=== PATIENT | male | born 1960 | race Caucasian/White ===

== ENCOUNTER 2023-10-18 16:07 | Emergency (ER) | payer OTHER ==
[~2023-10-18] VITALS: Ht 170.2 cm; Wt 81.0 kg
[2023-10-18 16:17] VITALS: BP 118/77; PULSE 100; RESP 18; TEMP 98.2; O2SAT 100
[2023-10-18] MEDS ORDERED: FLUT9.9S BOTHNSTRLS (18:53)
[2023-10-18] MEDS ORDERED: LORA10CA MT (18:53)
== END 2023-10-18 19:37 | disposition home or self-care (01) ==
LOC: ER 16:07
DX: H11.31 Conjunctival hemorrhage, right eye (principal); E11.9 Type 2 diabetes mellitus without complications; E78.00 Pure hypercholesterolemia, unspecified; I10 Essential (primary) hypertension; J30.9 Allergic rhinitis, unspecified; E11.319 Type 2 diabetes mellitus with unspecified diabetic retinopathy without macular edema; Z98.890 Other specified postprocedural states
CPT/HCPCS: 99281

== ENCOUNTER 2024-06-21 01:57 | Emergency (ER) | payer MEDICAID, OTHER ==
[~2024-06-21] VITALS: Ht 167.6 cm; Wt 77.0 kg
[~2024-06-21 01:57] MED LIST: FLUT9.9S BOTHNSTRLS; LORA10CA MT
[2024-06-21 02:28] VITALS: TEMP 36.8; O2SAT 99
[2024-06-21] MEDS ORDERED: OXYMETAZOLINE HCL NASAL SPRAY 15ML BOTHNSTRLS SCH (02:45)
[2024-06-21 04:35] LABS: CHLORIDE 98 mEq/L (98-107); POTASSIUM 4.8 mEq/L (3.5-5.1); SODIUM 135 mEq/L (136-145)
[2024-06-21 04:36] LABS: CARBON DIOXIDE 29 mEq/L (21-32)
[2024-06-21 04:37] LABS: CALCIUM 10.1 mg/dL (8.7-10.4)
[2024-06-21 04:41] LABS: CREATININE 0.9 mg/dL (0.6-1.3); GLUCOSE 188 mg/dL (70-105); UREA NITROGEN BLOOD 12 mg/dL (9-23)
[2024-06-21] MEDS: KETOROLAC 15MG/ML VIAL IM ONE (06:06)
[2024-06-21] MEDS: TRANEXAMIC ACID 1,000MG/10ML IV ONE (06:08)
[2024-06-21 07:18] VITALS: BP 148/72; PULSE 101; RESP 18; O2SAT 96
[2024-06-21 09:11] LABS: BASOPHILS % 0.5 % (0.0-2.0); EOSINOPHILS % 0.2 % (0.0-5.0); HEMATOCRIT. 45.5 % (42.0-52.0); HEMOGLOBIN. 15.7 g/dL (14.0-18.0); LYMPHOCYTES % 7.8 % (20.0-50.0); MEAN CORPUSCULAR HEMOGLOBIN 30.8 pg (28.0-32.0); MEAN CORPUSCULAR HGB CONC 34.6 g/dL (31.0-37.0); MEAN CORPUSCULAR VOLUME 89.1 fL (80.0-94.0); MEAN PLATELET VOLUME 8.5 fl (7.4-10.4); MONOCYTES % 6.5 % (2.0-8.0); PLATELET 208 x1000/uL (130-400); RED BLOOD CELL COUNT 5.11 mill/uL (4.7-6.1); RED CELL DISTRIBUTION WIDTH 14.1 % (11.6-14.6); WHITE BLOOD COUNT 14.7 x1000/uL (4.5-11.0)
== END 2024-06-21 07:31 | disposition home or self-care (01) ==
LOC: ER 02:07
DX: R04.0 Epistaxis (principal); E78.00 Pure hypercholesterolemia, unspecified; E11.9 Type 2 diabetes mellitus without complications; I10 Essential (primary) hypertension; Z98.890 Other specified postprocedural states
CPT/HCPCS: 99284; 96374; 80048; 85025; 36415; 96372; J1885

== ENCOUNTER 2025-02-25 11:21 | Emergency (ER) | payer MEDICAID, OTHER ==
[~2025-02-25] VITALS: Ht 167.6 cm; Wt 74.0 kg
[2025-02-25 11:36] VITALS: TEMP 36.7; O2SAT 100
[2025-02-25 13:53] LABS: CLARITY URINE CLEAR (CLEAR); COLOR URINE YELLOW (YELLOW); GLUCOSE URINE NEGATIVE (NEGATIVE); KETONES URINE NEGATIVE (NEGATIVE); LEUKOCYTE ESTERASE URINE NEGATIVE (NEGATIVE); NITRITE URINE NEGATIVE (NEGATIVE); OCCULT BLOOD URINE NEGATIVE (NEGATIVE); PH URINE 6.0 (4.5-8.0); PROTEIN URINE NEGATIVE (NEGATIVE); SPECIFIC GRAVITY URINE 1.015 (1.005-1.030); UROBILINOGEN URINE 1.0 E.U./dL (0.2-1.0)
[2025-02-25 14:06] LABS: BASOPHILS % 0.5 % (0.0-2.0); EOSINOPHILS % 3.7 % (0.0-5.0); HEMATOCRIT. 38.5 % (42.0-52.0); HEMOGLOBIN. 13.5 g/dL (14.0-18.0); LYMPHOCYTES % 20.4 % (20.0-50.0); MEAN PLATELET VOLUME 7.8 fl (7.4-10.4); MONOCYTES % 7.0 % (2.0-8.0); NEUTROPHILS % 68.4 % (40.0-76.0); PLATELET 130 x1000/uL (130-400); RED BLOOD CELL COUNT 4.41 mill/uL (4.7-6.1); RED CELL DISTRIBUTION WIDTH 14.0 % (11.6-14.6)
[2025-02-25 14:19] LABS: CREATININE 0.8 mg/dL (0.6-1.3); UREA NITROGEN BLOOD 10 mg/dL (9-23)
[2025-02-25 14:21] LABS: ASPARTATE AMINOTRANSFERASE 25 IU/L (<34); BILIRUBIN DIRECT 0.4 mg/dL (<=3.0); BILIRUBIN TOTAL 1.2 mg/dL (0.1-1.0); PROTEIN TOTAL 6.5 g/dL (6.0-8.3)
[2025-02-25 14:43] VITALS: BP 168/91; PULSE 76; RESP 18; O2SAT 100
== END 2025-02-25 14:43 | disposition home or self-care (01) ==
LOC: ER 11:37
DX: R10.9 Unspecified abdominal pain (principal); E11.9 Type 2 diabetes mellitus without complications; E78.00 Pure hypercholesterolemia, unspecified; I10 Essential (primary) hypertension; Z90.49 Acquired absence of other specified parts of digestive tract; Z98.890 Other specified postprocedural states; Z79.899 Other long term (current) drug therapy
CPT/HCPCS: 36415; 74176; 80048; 80076; 81003; 85025; 99284